=== PATIENT | female | born 1940 | race Caucasian/White ===

== ENCOUNTER 2017-11-08 16:56 | Emergency (ER) | END 2017-11-08 18:14 | disposition home or self-care (01) ==

== ENCOUNTER 2018-08-31 15:10 | Inpatient (IN) | payer MEDICARE, OTHER ==
[~2018-08-31] VITALS: Ht 152.4 cm; Wt 45.5 kg
[2018-08-31 15:22] VITALS: Ht 152.4 cm; Wt 45.5 kg
[2018-08-31] MEDS ORDERED: VANCOMYCIN 1 GM (PMX) 250 ML IVPB STA (15:25)
[2018-08-31] MEDS ORDERED: CEFEPIME 2GM/50 ML (PMX) 50 ML IVPB STA (15:25)
[2018-08-31] MEDS ORDERED: NITROGLYCERIN (SL) 0.4 MG TAB ONE (15:46)
[2018-08-31] MEDS ORDERED: NITROGLYCERIN (SL) 0.4 MG TAB SL STA ×2 (15:47→15:54)
[2018-08-31] MEDS ORDERED: ATOR40TA68 PO (16:35)
[2018-08-31] MEDS ORDERED: DOCU-144 PO (16:36)
[2018-08-31] MEDS ORDERED: FER325 PO (16:36)
[2018-08-31] MEDS ORDERED: LEVO50TA7 PO (16:37)
[2018-08-31] MEDS ORDERED: FURO40TA4 PO (16:37)
[2018-08-31] MEDS ORDERED: PANT40TA3 PO (16:38)
[2018-08-31] MEDS ORDERED: NIFE60TA18 PO (16:38)
[2018-08-31] MEDS ORDERED: SEVE800T7 PO (16:39)
[2018-08-31] MEDS ORDERED: FAMO1TAB3 PO (16:40)
[2018-08-31] MEDS ORDERED: CYAN100080 PO (16:42)
[2018-08-31] MEDS ORDERED: ERGO500013 PO (16:43)
[2018-08-31] MEDS ORDERED: FOLI-49 PO (16:44)
[2018-08-31] MEDS ORDERED: NEPHRO-VITE PO (16:45)
[2018-08-31] MEDS ORDERED: PHEN100C PO (16:46)
[2018-08-31] MEDS ORDERED: PYRI50TA14 PO (16:46)
[2018-08-31] MEDS ORDERED: SENN-120 PO (16:47)
[2018-08-31] MEDS ORDERED: WARF5TAB PO (16:47)
[2018-08-31] MEDS ORDERED: NACL 0.9% 3 ML SYG IV SCH (18:00)
[2018-08-31] MEDS ORDERED: DOCUSATE SODIUM 100 MG CAP PO PRN (18:00)
[2018-08-31] MEDS ORDERED: NITROGLYCERIN (SL) 0.4 MG TAB SL PRN (18:00)
[2018-08-31] MEDS ORDERED: ONDANSETRON 4 MG INJ IV PRN ×2 (18:00)
[2018-08-31] MEDS ORDERED: ACETAMINOPHEN 325 MG TAB PO PRN ×2 (18:00)
[2018-08-31] MEDS ORDERED: ALBUTEROL 0.083% (NEB) 2.5 MG/3 ML AMP HHN PRN (18:30)
[2018-08-31] MEDS ORDERED: LABETALOL HCL 20MG INJ IV PRN (19:00)
--- NOTE | 2018-08-31 19:06 | ERD ---
ER Documentation Chief Complaint Chief Complaint SOB 2 hours into HD today; denies any CP HPI 77-year-old female with CKD on hemodialysis, seizure disorder, and hypertension brought in from dialysis today for shortness of breath that started 2 hours into dialysis. She denies any associated chest pain. She does feel generally weak. Otherwise history is limited from the patient as she is in severe respiratory distress. History is mostly taken from the patient's at bedside. He states that the patient has antiphospholipid syndrome and has been on Coumadin for many years. He was they were recently at their senior sourcing manager's office yesterday and she was noted to have a low-grade fever for which she was prescribed Keflex. Otherwise she has been feeling well just somewhat fatigued. ROS Limited due to respiratory distress Medications Home Meds Reported Medications Warfarin Sodium* (Coumadin*) 5 Mg Tablet, 5.5 MG PO QHS, TAB 08/31/18 Sennosides* (Senna Lax*) 8.6 Mg Tablet, 1 TAB PO DAILY, TAB 08/31/18 Pyridoxine Hcl* (Pyridoxine Hcl*) 50 Mg Tablet, 50 MG PO DAILY, TAB 08/31/18 Phenytoin* Sodium Extended (Dilantin*) 100 Mg Capsule, 200 MG PO HS, CAP 08/31/18 [Nephro-Andressa] No Conflict Check, 1 TAB PO DAILY 08/31/18 Folic Acid* (Folic Acid*) Unknown Strength Tablet, 3 TAB PO DAILY, TAB 08/31/18 Ergocalciferol (Vitamin D2) (VITAMIN D2) 50,000 Unit Capsule, 96910 UNIT PO Q30D, CAP 08/31/18 Cyanocobalamin* (Vitamin B-12*) Unknown Strength Tablet.sa, 1 TAB PO DAILY, TAB 08/31/18 Famotidine/Ca Carb/Mag Hydrox (TUMS DUAL ACTION TABLET CHEW) 1 Each Tab.chew, 100 MG PO TID, TAB.CHEW 08/31/18 Sevelamer Carbonate* (Renvela*) 800 Mg Tablet, 0.8 GM PO WITH MEALS, TAB 08/31/18 Pantoprazole* (Protonix*) 40 Mg Tablet.dr, 40 MG PO DAILY, TAB 08/31/18 Nifedipine* (Nifedipine ER*) 60 Mg Tablet.sa, 120 MG PO DAILY, TAB.SA 08/31/18 Levothyroxine Sodium* (Levothyroxine Sodium*) 50 Mcg Tablet, 50 MCG PO BEFORE BREAKFAST, #30 TAB 08/31/18 Furosemide* (Furosemide*) 40 Mg Tablet, 40 MG PO TID, TAB 08/31/18 Ferrous Sulfate* (Ferrous Sulfate*) 325 Mg Tabec, 325 MG PO TID, TAB 08/31/18 Docusate Sodium* (Colace*) 100 Mg Capsule, 100 MG PO BID PRN for prn, #60 CAP 08/31/18 Atorvastatin* (Atorvastatin*) 40 Mg Tablet, 40 MG PO QHS, #30 TAB 08/31/18 Allergies Allergies: Coded Allergies: amoxicillin (Verified Allergy, Unknown, 08/31/18) carbamazepine (Verified Allergy, Unknown, 08/31/18) ciprofloxacin (Verified Allergy, Unknown, 08/31/18) divalproex sodium (Verified Allergy, Unknown, 08/31/18) PMhx/Soc History of Surgery: Yes (kidney/ureter, shunt placement) Anesthesia Reaction: No Hx Neurological Disorder: Yes (seizure d/o ) Hx Respiratory Disorders: No Hx Cardiac Disorders: Yes (htn, renal failure, dialysis, dm) Hx Psychiatric Problems: No Hx Miscellaneous Medical Probl: Yes Hx Alcohol Use: No Hx Substance Use: No Hx Tobacco Use: No Smoking Status: Never smoker FmHx Family History: No diabetes Physical Exam Vitals Vital Signs Date Temp Pulse Resp B/P (MAP) Pulse Ox O2 O2 Flow FiO2 Time Delivery Rate 08/31/18 100.1 84 36 175/70 100 Nasal 3.0 18:31 (105) Cannula 08/31/18 86 24 157/66 100 Nasal 8.0 17:30 (96) Cannula 08/31/18 115 98 100 15:45 08/31/18 115 32 211/119 95 Nasal 8.0 15:23 (149) Cannula 08/31/18 Nasal 8.0 15:23 Cannula 08/31/18 98.1 116 32 205/92 81 15:22 (129) Physical Exam Const: Severe respiratory distress, cyanotic, speaking in short sentences Head: Atraumatic Eyes: Normal Conjunctiva ENT: dry mucous membranes Neck: Full range of motion. No meningismus.no JVD Resp: Diminished breath sounds at the right lung base with generally poor air movement. no rales, wheezing, or rhonchi Cardio: Tachycardic with regular rhythm, no murmurs Abd: Soft, non tender, non distended. Normal bowel sounds Skin: No petechiae or rashes Back: No midline or flank tenderness Ext: Cyanotic, no peripheral edema, no calf tenderness Neur: Awake and alert Result Diagram: 08/31/18 1534 08/31/18 1534 Results 24 hrs Laboratory Tests Test 08/31/18 15:25 08/31/18 15:34 08/31/18 15:37 08/31/18 17:35 Blood Gas Blood arterial Specimen Source Arterial Blood 08/31/2018 4:25: Date Drawn 55 PM Arterial Blood 7.470 pH (Temp corrected) Arterial Blood 46.0 mmhg pCO2 (Temp correct) Arterial Blood 504.1 mmHG pO2 (Temp corrected) Arterial Blood 32.7 mmol/L HCO3 Arterial Blood 8.2 mmol/L Base Excess Arterial Blood 99.7 mmHG Oxygen Saturatio n Eron Test ACCEPTAB Arterial Blood Right Radial Gas Puncture Site Arterial 0.7 % Blood Carboxyhem oglobin Arterial Blood 0.3 % Methemoglobin Blood Gas A-a O2 162.9 mmHg Differential Oxyhemoglobin 98.7 % Percent Blood Gas 37.0 C Temperature Blood Gas 14.0 Respiration Rate Blood Gas Actual 20 Respiration Rate Blood Gas MASK - BIPAP Modality FiO2 100.0 % Blood Gas 10 Pressure Support Blood Gas 15/5 IPAP/EPAP Ratio Blood Gas MDA Notified Whom Blood Gas 08/31/2018 4:28: Notified Time 32 PM White Blood 5.5 10^3/ul Count Red Blood Count 3.46 10^6/ul Hemoglobin 9.0 g/dl Hematocrit 30.1 % Mean Corpuscular 87.0 fl Volume Mean Corpuscular 26.0 pg Hemoglobin Mean Corpuscular 29.9 g/dl Hemoglobin Nadia nt Red Cell 18.1 % Distribution Width Platelet Count 53 10^3/UL Mean Platelet fl Volume Immature 0.500 % Granulocytes % Neutrophils % % Segmented 81 % Neutrophils % (Manual) Lymphocytes % % Lymphocytes % 9 % (Manual) Monocytes % % Monocytes % 5 % (Manual) Eosinophils % % Eosinophils % 4 % (Manual) Basophils % % Basophils % 1 % (Manual) Nucleated Red 1 % Blood Cells % Immature 0.030 10^3/ul Granulocytes # Neutrophils # 10^3/ul Lymphocytes 0.4 10^3/ul (Manual) Lymphocytes # 10^3/ul Monocytes # 10^3/ul Monocytes # 0.2 10^3/ul (Manual) Eosinophils # 10^3/ul Basophils # 10^3/ul Basophils # 0.0 10^3/ul (Manual) Nucleated Red 10^3/ul Blood Cells # Platelet DECREASED Estimate Giant Platelets 1 % Polychromasia 2+ Hypochromasia 1+ Poikilocytosis 2+ Anisocytosis 1+ Microcytosis 1+ Tear Drop Cells 1+ Prothrombin Time 20.0 Sec Prothrombin Time 1.6 Ratio INR 1.69 International Normalized Ratio Activated 125.1 Sec Partial Thrombop last Time Sodium Level 142 mmol/L Potassium Level 4.4 mmol/L Chloride Level 91 mmol/L Carbon Dioxide 34 mmol/L Level Anion Gap 17 Blood Urea 18 mg/dl Nitrogen Creatinine 2.45 mg/dl Est Glomerular mL/min Filtrat Rate mL/min Glucose Level 109 mg/dl Calcium Level 9.4 mg/dl Total Bilirubin 0.3 mg/dl Direct Bilirubin 0.00 mg/dl Indirect 0.3 mg/dl Bilirubin Aspartate Amino 156 IU/L Transf (AST/SGOT ) Alanine 86 IU/L Aminotransferase (ALT/SGPT) Alkaline 261 IU/L Phosphatase Troponin I 0.089 ng/ml B-Type > 878352 PG/ML Natriuretic Peptide Total Protein 8.4 g/dl Albumin 4.4 g/dl Globulin 4.00 g/dl Albumin/Globulin 1.10 Ratio POC Venous 4.3 mmol/L 1.4 mmol/L Lactate Current Medications Medications Dose Sig/Sherrell Start Time Status Last (Trade) Ordered Route PRN Stop Time Admin Dose Reason Admin Vancomycin 250 ml @ ONCE STAT 08/31/18 DC 08/31/18 HCl 125 mls/hr IVPB 15:25 16:03 08/31/18 17:24 Cefepime HCl 50 ml @ ONCE STAT 08/31/18 DC 08/31/18 100 mls/hr IVPB 15:25 15:30 08/31/18 15:54 25 tab STK-MED 08/31/18 DC Nitroglycerin ONCE .ROUTE 15:46 08/31/18 15:47 (Nitroglyceri n (Sl Tab) 0.4 Mg) 1 tab ONCE STAT 08/31/18 DC 08/31/18 Nitroglycerin SL 15:47 15:47 08/31/18 16:09 (Nitroglyceri n (Sl Tab) 0.4 Mg) 1 tab ONCE STAT 08/31/18 DC 08/31/18 Nitroglycerin SL 15:54 15:54 08/31/18 16:17 (Nitroglyceri n (Sl Tab) 0.4 Mg) Ondansetron 4 mg ER BRIDGE 08/31/18 DC HCl (Zofran PRN IV 18:00 Inj) NAUSEA AND/OR 08/31/18 18:13 VOMITING 650 mg ER BRIDGE 08/31/18 DC Acetaminophen PRN PO MILD 18:00 (Tylenol PAIN(1-3)OR 08/31/18 18:13 Tab) ELEVATED TEMP 40 mg QHS PO 08/31/18 Atorvastatin 21:00 Calcium (Lipitor) Docusate 100 mg BID PRN 08/31/18 Sodium PO prn 18:00 (Colace) Ferrous 325 mg TID PO 08/31/18 Sulfate 21:00 (Ferrous Sulfate (Ec)) Furosemide 40 mg TID PO 08/31/18 DC (Lasix) 21:00 08/31/18 21:00 50 mcg BEFORE 09/01/18 DC Levothyroxine BREAKFAST 07:00 Sodium PO 09/01/18 07:00 (Synthroid) Nifedipine 120 mg DAILY PO 08/31/18 (Procardia 18:00 Xl) 40 mg DAILY PO 09/01/18 UNV Pantoprazole 09:00 (Protonix Tab) Phenytoin 200 mg HS PO 08/31/18 (Dilantin) 21:00 Pyridoxine 50 mg DAILY PO 09/01/18 HCl 09:00 (Vitamin B6) Senna 1 tab DAILY PO 09/01/18 (Senokot) 09:00 Sevelamer 0.8 gm WITH MEALS 08/31/18 Carbonate PO 18:00 (Renvela) Warfarin 5.5 mg QHS PO 08/31/18 UNV Sodium 21:00 (Coumadin) IV Flush 3 ml PER 08/31/18 (NS 3 ml) PROTOCOL IV 18:00 Ondansetron 4 mg Q6H PRN 08/31/18 HCl (Zofran IV NAUSEA 18:00 Inj) AND/OR VOMITING 1 tab Q5M PRN 08/31/18 Nitroglycerin SL CHEST 18:00 PAIN (Nitroglyceri n (Sl Tab) 0.4 Mg) 650 mg Q6H PRN 08/31/18 Acetaminophen PO PAIN 18:00 (Tylenol LEVEL 1-3 OR Tab) FEVER 40 mg DAILY@06 09/01/18 Pantoprazole PO 06:00 (Protonix Tab) Furosemide 20 mg Q8 IV 08/31/18 (Lasix) 18:30 Albuterol 2.5 mg Q2H RESP 08/31/18 (Proventil THERAPY PRN 18:30 0.083% (Neb)) HHN SHORTNESS OF BREATH Warfarin 2.5 mg QHS PO 08/31/18 Sodium 21:00 (Coumadin) Warfarin 3 mg QHS PO 08/31/18 Sodium 21:00 (Coumadin) 75 mcg BEFORE 09/01/18 Levothyroxine BREAKFAST 07:00 Sodium PO (Synthroid) Labetalol 10 mg Q4 PRN IV 08/31/18 UNV HCl SBP >170 19:00 (Labetalol) Hydralazine 10 mg Q4H PRN 08/31/18 UNV HCl IV SBP >170 19:00 (Apresoline) Procedures/MDM EMERGENT LABS AND DIAGNOSTIC STUDIES: Lab Results above were reviewed and interpreted by me. CBC: Mild anemia and thrombocytopenia CMP: Elevated creatinine, consistent with CKD. No evidence of electrolyte abnormality or hypoglycemia BNP significantly elevated, consistent with fluid overload Troponin within normal limits, not indicative of cardiac ischemia Lactate significantly elevated, consistent with tissue hypoperfusion Coags: INR is subtherapeutic. PTT is significantly elevated, unclear etiology 12-lead EKG was interpreted by Tish Carlos MD: Normal Sinus Rhythm with ventricular rate of 98 beats per minute Right axis deviation Normal intervals No acute ST or T wave changes suggestive of acute ischemia or STEMI. Radiology Results as interpreted by Radiology below were reviewed by Rachael aCrlos MD: Chest x-ray shows moderate right pleural effusion. Mild pulmonary vascular congestion. Initial Nursing notes reviewed. Previous Medical Records requested via the Electronic Health Record. EMERGENCY DEPARTMENT COURSE / MEDICAL DECISION MAKING: patient presented in severe respiratory distress and was hypoxic on room air despite supplemental oxygen. IVs were placed. She was placed on BiPAP with significant symptomatic improvement. Her chest x-ray showed a right-sided pleural effusion, which her states that she had on her last admission to [facility]. It is unclear if that was smaller than this. However there is no obvious consolidation that would be consistent with pneumonia. She was hypertensive so nitroglycerin was given with improvement of her blood pressure. Sepsis workup was initiated and she was given broad-spectrum antibiotics, however I have a lower suspicion for severe sepsis or septic shock in this patient. I believe her lactate elevation is likely secondary to her hypoxia. Repeat lactate was within normal limits after stabilization. Patient does feel much better and is on nasal cannula upon reassessment. However I feel she will need admission for observation as she is still on supplemental oxygen by nasal cannula. Low suspicion for acute coronary syndrome or pulmonary embolism. Further workup will be deferred to the inpatient team. Critical Care Time: 45 minutes Treatments/Evaluations: Close monitoring and treatment of unstable vital signs, cardiorespiratory, and neurologic status, while maintaining tight balance of fluid, respiratory, and cardiac interventions. This time includes discussing the case with the patient and the patients family. This time does not include all procedures stated elsewhere in this record. This time also includes reviewing old records, labs and radiological studies. This time includes examining and re-examining the patient. Additionally, this time also includes arranging care with admitting and consulting physicians. Departure Diagnosis: Primary Impression: Acute respiratory failure with hypoxia Additional Impressions: CKD (chronic kidney disease) Chronic kidney disease stage: on chronic dialysis Qualified Codes: N18.6 - End stage renal disease; Z99.2 - Dependence on renal dialysis Pleural effusion, right Elevated partial thromboplastin time (PTT) Lactic acidosis Condition: Serious RICO CARLOS MD Aug 31, 2018 19:06
--- NOTE | 2018-08-31 19:08 | HP ---
Date/Time of Note Date/Time of Note DATE: 08/31/18 TIME: 18:44 Assessment/Plan VTE Prophylaxis SCD applied (from Nsg): Yes Pharmacological prophylaxis: NA/contraindicated Pharm contraindication: thrombocytopenia Lines/Catheters IV Catheter Type (from Nrsg): Saline Lock Assessment/Plan Assessment/Plan 1. Acute shortness of breath - weaned off bipap and doing well on NC - Effusion appreciated on RLL and will give Lasix - no signs of infection and patient was given a dose of antibiotics in ED 2. Hypertension - continue home medications and adjust as needed - PRN on board if SBP >170 3. Recent fever - Patient has low grade temp of 100.1. - Most likely viral. Will check influenza swab - will hold off on antibiotics and if spikes a fever >101 will start on empirical antibiotics - lactic acid normalized 4. ESRD on HD - Nephrology consultation placed for HD management. MWF schedule 5. Hypothyroidism - per , levothyroxine was recently adjusted and increased to 75mcg 6. h/o antiphospholipid Ab - on Coumadin and managed by her stock broker 7. h/o thalassemia minor 8. thrombocytopenia - started on new medication but does not remember name 9. Seizure history - continue on dilantin 10. h/o CVA with residual expressive aphasia 11. Diet - Renal 12. DVT ppx - SCD 13. GI - PPI 14. Disposition - Admit to telemetry for optimization of respiratory status Result Diagram: 08/31/18 1534 08/31/18 1534 Results 24hrs Laboratory Tests Test 08/31/18 15:25 08/31/18 15:34 08/31/18 15:37 08/31/18 17:35 Blood Gas Blood arterial Specimen Source Arterial Blood 08/31/2018 4:25:5 Date Drawn 5 PM Arterial Blood pH 7.470 H (Temp corrected) Arterial Blood 46.0 H pCO2 (Temp correct) Arterial Blood 504.1 H pO2 (Temp corrected) Arterial Blood 32.7 H HCO3 Arterial Blood 8.2 H Base Excess Arterial Blood 99.7 Oxygen Saturation Eron Test ACCEPTAB Arterial Blood Right Radial Gas Puncture Site Arterial 0.7 Blood Carboxyhemo globin Arterial Blood 0.3 Methemoglobin Blood Gas A-a O2 162.9 H Differential Oxyhemoglobin 98.7 Percent Blood Gas 37.0 Temperature Blood Gas 14.0 Respiration Rate Blood Gas Actual 20 Respiration Rate Blood Gas MASK - BIPAP Modality FiO2 100.0 Blood Gas 10 Pressure Support Blood Gas 15/5 IPAP/EPAP Ratio Blood Gas MDA Notified Whom Blood Gas 08/31/2018 4:28:3 Notified Time 2 PM White Blood Count 5.5 Red Blood Count 3.46 L Hemoglobin 9.0 L Hematocrit 30.1 L Mean Corpuscular 87.0 Volume Mean Corpuscular 26.0 L Hemoglobin Mean Corpuscular 29.9 L Hemoglobin Concen t Red Cell 18.1 H Distribution Width Platelet Count 53 L Mean Platelet Volume Immature 0.500 H Granulocytes % Neutrophils % Segmented 81 H Neutrophils % (Manual) Lymphocytes % Lymphocytes % 9 L (Manual) Monocytes % Monocytes % 5 (Manual) Eosinophils % Eosinophils % 4 (Manual) Basophils % Basophils % 1 (Manual) Nucleated Red 1 H Blood Cells % Immature 0.030 Granulocytes # Neutrophils # Lymphocytes 0.4 L (Manual) Lymphocytes # Monocytes # Monocytes # 0.2 L (Manual) Eosinophils # Basophils # Basophils # 0.0 (Manual) Nucleated Red Blood Cells # Platelet Estimate DECREASED Giant Platelets 1 H Polychromasia 2+ Hypochromasia 1+ Poikilocytosis 2+ Anisocytosis 1+ Microcytosis 1+ Tear Drop Cells 1+ Prothrombin Time 20.0 H Prothrombin Time 1.6 Ratio INR International 1.69 Normalized Ratio Activated 125.1 *H Partial Thrombopl ast Time Sodium Level 142 Potassium Level 4.4 Chloride Level 91 L Carbon Dioxide 34 H Level Anion Gap 17 H Blood Urea 18 Nitrogen Creatinine 2.45 H Est Glomerular Filtrat Rate mL/min Glucose Level 109 Calcium Level 9.4 Total Bilirubin 0.3 Direct Bilirubin 0.00 Indirect 0.3 Bilirubin Aspartate Amino 156 H Transf (AST/SGOT) Alanine 86 H Aminotransferase (ALT/SGPT) Alkaline 261 H Phosphatase Troponin I 0.089 B-Type > 214242 H Natriuretic Peptide Total Protein 8.4 H Albumin 4.4 Globulin 4.00 H Albumin/Globulin 1.10 Ratio POC Venous 4.3 *H 1.4 Lactate HPI/ROS Admit Date/Time Admit Date/Time 08/31/18 1900 Hx of Present Illness 77 yo F with PMH ESRD on HD, antiphospholipid Ab with history of stroke with residual expressive aphasia, hypothyroidism, seizures, and HTN presented from HD today after experiencing acute shortness of breath with hypotension. She was transported to ED and found to be hypoxic with saturations in the 80% and placed on BIPAP. She was weaned to nasal cannula with improvement in her respiratory status. She was also found with elevated BP and given nitro with improvement. CXR was performed and she was found with right sided pleural effusion with mild pulmonary congestion. Per she was seen by her stock broker 2 days ago for INR check and found with temp 100.5, CXR, blood cultures and urine studies were performed. She was given a dose of Cefepime and continued on PO Keflex which she took a dose of last night. Patient denies any chest pain, palpitations, headaches, nasal congestion, cough, dizziness, constipation, diarrhea, urinary issues, or sick contact. Per she was admitted to [facility] last month for workup of acute GI bleeding after INR was found to be 4 and underwent EGD and colonoscopies that were negative for acute bleeding. Patient denies any blood in stool at this time or active bleeding. ROS All 12 systems reviewed and pertinent positives as per HPI. All others negative. Constitutional: No fatigue, No nausea Eyes: No discharge ENT: No congestion Respiratory: shortness of breath; No pain, No cough, No sputum, No wheezing Cardiovascular: No chest pain, No lightheadedness, No palpitations Gastrointestinal: No pain, No constipation, No diarrhea, No nausea, No vomiting Genitourinary: no complaints Musculoskeletal: no complaints Skin: No bruising, No laceration, No rash Neurologic: no complaints Endocrine: no complaints Lymphatic: no complaints Psychological: nl mood/affect Immunologic: no complaints PMH/Family/Social Past Medical History Medical History: other (ESRD on HD, antiphospholipid Ab with history of stroke with residual expressive aphasia, hypothyroidism, seizures, and HTN ) Medications Current Medications Atorvastatin Calcium (Lipitor) 40 mg QHS PO ; Start 08/31/18 at 21:00 Docusate Sodium (Colace) 100 mg BID PRN PO prn; Start 08/31/18 at 18:00 Ferrous Sulfate (Ferrous Sulfate (Ec)) 325 mg TID PO ; Start 08/31/18 at 21:00 Levothyroxine Sodium (Synthroid) 50 mcg BEFORE BREAKFAST PO ; Start 09/01/18 at 07:00 Nifedipine (Procardia Xl) 120 mg DAILY PO ; Start 08/31/18 at 18:00 Phenytoin (Dilantin) 200 mg HS PO ; Start 08/31/18 at 21:00 Pyridoxine HCl (Vitamin B6) 50 mg DAILY PO ; Start 09/01/18 at 09:00 Senna (Senokot) 1 tab DAILY PO ; Start 09/01/18 at 09:00 Sevelamer Carbonate (Renvela) 0.8 gm WITH MEALS PO ; Start 08/31/18 at 18:00 IV Flush (NS 3 ml) 3 ml PER PROTOCOL IV ; Start 08/31/18 at 18:00 Ondansetron HCl (Zofran Inj) 4 mg Q6H PRN IV NAUSEA AND/OR VOMITING; Start 08/31/18 at 18:00 Nitroglycerin (Nitroglycerin (Sl Tab) 0.4 Mg) 1 tab Q5M PRN SL CHEST PAIN; Start 08/31/18 at 18:00 Acetaminophen (Tylenol Tab) 650 mg Q6H PRN PO PAIN LEVEL 1-3 OR FEVER; Start 08/31/18 at 18:00 Pantoprazole (Protonix Tab) 40 mg DAILY@06 PO ; Start 09/01/18 at 06:00 Furosemide (Lasix) 20 mg Q8 IV ; Start 08/31/18 at 18:30 Albuterol (Proventil 0.083% (Neb)) 2.5 mg Q2H RESP THERAPY PRN HHN SHORTNESS OF BREATH; Start 08/31/18 at 18:30 Warfarin Sodium (Coumadin) 2.5 mg QHS PO ; Start 08/31/18 at 21:00 Warfarin Sodium (Coumadin) 3 mg QHS PO ; Start 08/31/18 at 21:00 Coded Allergies: amoxicillin (Verified Allergy, Unknown, 08/31/18) carbamazepine (Verified Allergy, Unknown, 08/31/18) ciprofloxacin (Verified Allergy, Unknown, 08/31/18) divalproex sodium (Verified Allergy, Unknown, 08/31/18) Past Surgical History Past Surgical Hx: noncontributory Family History Significant Family History: no pertinent family hx Social History Alcohol Use: none Smoking Status: Never smoker Drug Use: none Exam/Review of Systems Vital Signs Vitals Vital Signs Date Temp Pulse Resp B/P (MAP) Pulse Ox O2 O2 Flow FiO2 Time Delivery Rate 08/31/18 100.1 84 36 175/70 100 Nasal 3.0 18:31 (105) Cannula 08/31/18 100 15:45 Exam Exam General: Patient is laying in bed and answers questions appropriately. no acute distress. slow to answer HEENT: NC/AT. PERRL. EOM intact Neck: Supple, nontender, midline Respiratory: Diminished right base, no wheezing or crackles appreciated Cardiovascular: S1, S2, regular rate and rhythm, no obvious murmurs Gastrointestinal: soft, nondistended, non-tender to palpation, bowel sounds heard. no rebound or guarding Neurological: Moves all extremities spontaneously. no focal deficits Ext: no cyanosis, clubbing, or edema Skin: No new skin lesions Additional Comments Home medication reviewed Imaging: PROCEDURE: XR Chest. CLINICAL INDICATION: Dyspnea TECHNIQUE: Single frontal chest x-ray. COMPARISON: None. FINDINGS: There are moderate right pleural effusion. No pneumothorax. Mildly enlarged cardiac silhouette. Mild pulmonary vascular congestion. Aortic atherosclerotic calcification is noted. The osseous structures are unremarkable. Vascular stent projects over the right axillary region. IMPRESSION: 1. Moderate right pleural effusion. 2. Mildly enlarged cardiac silhouette. Mild pulmonary vascular congestion. 3. Aortic atherosclerosis. RPTAT: [id number] .Xander Diamond MD, MD Date Time Electronically viewed and signed by .Xander Diamond MD, MD on 08/31/2018 16:09 ALEKSANDRA PALACIOS MD Aug 31, 2018 18:56
[2018-08-31 19:35] VITALS: BP 199/96; PULSE 87; RESP 22
[2018-08-31 20:00] VITALS: PULSE 82
[2018-08-31] MEDS ORDERED: FUROSEMIDE 40 MG TAB PO SCH (21:00)
[2018-08-31] MEDS ORDERED: WARFARIN 5 MG TAB PO SCH (21:00)
[2018-08-31] MEDS ORDERED: CEFEPIME 1GM/50 ML (PMX) 50 ML IVPB SCH (21:00)
[2018-08-31] MEDS: NIFEdipine (XL) 60 MG TAB PO SCH (21:29)
[2018-08-31] MEDS: FUROSEMIDE 20 MG INJ IV SCH ×2 (21:30→22:00)
[2018-08-31] MEDS: ATORVASTATIN 40 MG TAB PO SCH (21:30)
[2018-08-31] MEDS: FERROUS SULFATE (EC) 325 MG TAB PO SCH (21:30)
[2018-08-31] MEDS: SEVELAMER CARBONATE 0.8 GM PKT PO SCH (21:30)
[2018-08-31] MEDS: WARFARIN 3 MG TAB PO SCH (21:31)
[2018-08-31] MEDS: WARFARIN 2.5 MG TAB PO SCH (21:31)
[2018-08-31] MEDS: PHENYTOIN 100 MG CAP PO SCH (21:31)
[2018-08-31] MEDS: hydrALAzine 20 MG INJ IV PRN (23:47)
[2018-08-31 23:53] VITALS: BP 178/70; PULSE 81; RESP 18
[2018-09-01] VITALS (10 sets, daily range): BP systolic 141–164; BP diastolic 62–72; PULSE 76–83; RESP 18–21
[2018-09-01] MEDS: PANTOPRAZOLE (EC) 40 MG TAB PO SCH (05:39)
[2018-09-01] MEDS: FUROSEMIDE 20 MG INJ IV SCH ×3 (05:40→22:18)
[2018-09-01] MEDS: LEVOTHYROXINE 75 MCG TAB PO SCH (06:37)
[2018-09-01] MEDS ORDERED: LEVOTHYROXINE 50 MCG TAB PO SCH (07:00)
[2018-09-01] MEDS ORDERED: POTASSIUM CHLORIDE (SR) 20 MEQ TAB PO ONE (08:00)
[2018-09-01] MEDS: SENNA TAB PO SCH (08:27)
[2018-09-01] MEDS: PYRIDOXINE 50 MG TAB PO SCH (08:27)
[2018-09-01] MEDS: NIFEdipine (XL) 60 MG TAB PO SCH (08:28)
[2018-09-01] MEDS: SEVELAMER CARBONATE 0.8 GM PKT PO SCH ×3 (08:28→17:29)
[2018-09-01] MEDS: FERROUS SULFATE (EC) 325 MG TAB PO SCH ×3 (08:28→22:17)
[2018-09-01] MEDS ORDERED: PANTOPRAZOLE (EC) 40 MG TAB PO SCH (09:00)
--- NOTE | 2018-09-01 09:07 | PN ---
Date/Time of Note Date/Time of Note DATE: 09/01/18 TIME: 09:07 Assessment/Plan VTE Prophylaxis Risk score (from Ns)>0 risk: 5 SCD applied (from Ns): No SCD contraindicated: patient refusal Pharmacological prophylaxis: NA/contraindicated Pharm contraindication: thrombocytopenia Lines/Catheters IV [facility]ter [facility] (from [facility]): Saline Lock Assessment/Plan Assessment/Plan 1. Acute shortness of breath- improving - Patient doing well on nasal cannula and will need to wean off O2 or assess for need for home O2 - Effusion appreciated on RLL and on Lasix - Per Nephrology, will plan for HD session prior to discharge - no signs of infection and patient was given a dose of antibiotics in ED 2. Hypertension - continue home medications and adjust as needed - PRN on board if SBP >170 3. Recent fever- - Most likely viral. remains afebrile - will hold off on antibiotics and if spikes a fever >101 will start on empirical antibiotics - lactic acid normalized 4. ESRD on HD - Nephrology consultation placed for HD management. MWF schedule 5. Hypothyroidism - per , levothyroxine was recently adjusted and increased to 75mcg 6. h/o antiphospholipid Ab - on Coumadin and managed by her import and export clerk 7. h/o thalassemia minor 8. thrombocytopenia - started on new medication but does not remember name 9. Seizure history - continue on dilantin 10. h/o CVA with residual expressive aphasia 11. Disposition - Plans for another session of HD prior to discharge - Will evaluate need for home O2 as well - once respiratory status optimized, will d/c home Result Diagram: 09/01/18 0554 09/01/18 0554 Results 24hrs Laboratory Tests Test 08/31/18 15:25 08/31/18 15:34 08/31/18 15:37 08/31/18 17:35 Blood Gas Blood arterial Specimen Source Arterial Blood 08/31/2018 4:25:5 Date Drawn 5 PM Arterial Blood pH 7.470 H (Temp corrected) Arterial Blood 46.0 H pCO2 (Temp correct) Arterial Blood 504.1 H pO2 (Temp corrected) Arterial Blood 32.7 H HCO3 Arterial Blood 8.2 H Base Excess Arterial Blood 99.7 Oxygen Saturation Eron Test ACCEPTAB Arterial Blood Right Radial Gas Puncture Site Arterial 0.7 Blood Carboxyhemo globin Arterial Blood 0.3 Methemoglobin Blood Gas A-a O2 162.9 H Differential Oxyhemoglobin 98.7 Percent Blood Gas 37.0 Temperature Blood Gas 14.0 Respiration Rate Blood Gas Actual 20 Respiration Rate Blood Gas MASK - BIPAP Modality FiO2 100.0 Blood Gas 10 Pressure Support Blood Gas 15/5 IPAP/EPAP Ratio Blood Gas MDA Notified Whom Blood Gas 08/31/2018 4:28:3 Notified Time 2 PM White Blood Count 5.5 Red Blood Count 3.46 L Hemoglobin 9.0 L Hematocrit 30.1 L Mean Corpuscular 87.0 Volume Mean Corpuscular 26.0 L Hemoglobin Mean Corpuscular 29.9 L Hemoglobin Concen t Red Cell 18.1 H Distribution Width Platelet Count 53 L Mean Platelet Volume Immature 0.500 H Granulocytes % Neutrophils % Segmented 81 H Neutrophils % (Manual) Lymphocytes % Lymphocytes % 9 L (Manual) Monocytes % Monocytes % 5 (Manual) Eosinophils % Eosinophils % 4 (Manual) Basophils % Basophils % 1 (Manual) Nucleated Red 1 H Blood Cells % Immature 0.030 Granulocytes # Neutrophils # Lymphocytes 0.4 L (Manual) Lymphocytes # Monocytes # Monocytes # 0.2 L (Manual) Eosinophils # Basophils # Basophils # 0.0 (Manual) Nucleated Red Blood Cells # Platelet Estimate DECREASED Giant Platelets 1 H Polychromasia 2+ Hypochromasia 1+ Poikilocytosis 2+ Anisocytosis 1+ Microcytosis 1+ Tear Drop Cells 1+ Prothrombin Time 20.0 H Prothrombin Time 1.6 Ratio INR International 1.69 Normalized Ratio Activated 125.1 *H Partial Thrombopl ast Time Sodium Level 142 Potassium Level 4.4 Chloride Level 91 L Carbon Dioxide 34 H Level Anion Gap 17 H Blood Urea 18 Nitrogen Creatinine 2.45 H Est Glomerular Filtrat Rate mL/min Glucose Level 109 Calcium Level 9.4 Total Bilirubin 0.3 Direct Bilirubin 0.00 Indirect 0.3 Bilirubin Aspartate Amino 156 H Transf (AST/SGOT) Alanine 86 H Aminotransferase (ALT/SGPT) Alkaline 261 H Phosphatase Troponin I 0.089 B-Type > 104888 H Natriuretic Peptide Total Protein 8.4 H Albumin 4.4 Globulin 4.00 H Albumin/Globulin 1.10 Ratio POC Venous 4.3 *H 1.4 Lactate Test 08/31/18 20:39 09/01/18 05:54 Lactic Acid Level 1.2 White Blood Count 4.5 L Red Blood Count 2.88 L Hemoglobin 7.3 L Hematocrit 24.8 L Mean Corpuscular 86.1 Volume Mean Corpuscular 25.3 L Hemoglobin Mean Corpuscular 29.4 L Hemoglobin Concen t Red Cell 18.0 H Distribution Width Platelet Count 43 L Mean Platelet Volume Immature 0.700 H Granulocytes % Neutrophils % 72.6 Lymphocytes % 9.7 L Monocytes % 13.7 H Eosinophils % 2.9 Basophils % 0.4 Nucleated Red 0.0 Blood Cells % Immature 0.030 Granulocytes # Neutrophils # 3.3 Lymphocytes # 0.4 L Monocytes # 0.6 Eosinophils # 0.1 Basophils # 0.0 Nucleated Red 0.0 Blood Cells # Sodium Level 135 Potassium Level 3.3 L Chloride Level 92 L Carbon Dioxide 32 H Level Anion Gap 11 Blood Urea 29 #H Nitrogen Creatinine 3.68 H Est Glomerular Filtrat Rate mL/min Glucose Level 99 Calcium Level 8.6 Magnesium Level 1.9 Total Bilirubin 0.0 L Direct Bilirubin 0.00 Indirect 0.0 Bilirubin Aspartate Amino 126 H Transf (AST/SGOT) Alanine 71 H Aminotransferase (ALT/SGPT) Alkaline 209 H Phosphatase Total Protein 6.8 # Albumin 3.5 Globulin 3.30 H Albumin/Globulin 1.06 Ratio Subjective 24 Hr Interval Summary Free Text/Dictation Patient states she's feeling better but still with shortness of breath. No acute overnight events. Discussed with will give session of HD today and evaluate for home O2. Exam/Review of Systems Vital Signs Vitals Vital Signs Date Temp Pulse Resp B/P (MAP) Pulse Ox O2 O2 Flow FiO2 Time Delivery Rate 09/01/18 80 08:01 09/01/18 98.0 18 164/71 100 Nasal 07:41 (102) Cannula 09/01/18 2.0 01:27 08/31/18 100 15:45 Intake and Output 08/31/18 08/31/18 09/01/18 1515:00 23:00 07:00 IntakeIntake Total 340 ml BalanceBalance 340 ml Exam General: Patient is laying in bed and answers questions appropriately. no acute distress. slow to answer Neck: Supple Respiratory: Diminished right base, no wheezing or crackles appreciated Cardiovascular: S1, S2, regular rate and rhythm, no obvious murmurs Gastrointestinal: soft, nondistended, non-tender to palpation, bowel sounds heard. no rebound or guarding Neurological: Moves all extremities spontaneously. no focal deficits Medications Medications Current Medications Atorvastatin Calcium (Lipitor) 40 mg QHS PO Last administered on 08/31/18 21:30; Admin Dose 40 MG; Start 08/31/18 at 21:00 Docusate Sodium (Colace) 100 mg BID PRN PO prn; Start 08/31/18 at 18:00 Ferrous Sulfate (Ferrous Sulfate (Ec)) 325 mg TID PO Last administered on 09/01/18 08:28; Admin Dose 325 MG; Start 08/31/18 at 21:00 Nifedipine (Procardia Xl) 120 mg DAILY PO Last administered on 09/01/18 08:28; Admin Dose 120 MG; Start 08/31/18 at 18:00 Phenytoin (Dilantin) 200 mg HS PO Last administered on 08/31/18 21:31; Admin Dose 200 MG; Start 08/31/18 at 21:00 Pyridoxine HCl (Vitamin B6) 50 mg DAILY PO Last administered on 09/01/18 08:27; Admin Dose 50 MG; Start 09/01/18 at 09:00 Senna (Senokot) 1 tab DAILY PO Last administered on 09/01/18 08:27; Admin Dose 1 TAB; Start 09/01/18 at 09:00 Sevelamer Carbonate (Renvela) 0.8 gm WITH MEALS PO Last administered on 09/01/18 08:28; Admin Dose 0.8 GM; Start 08/31/18 at 18:00 IV Flush (NS 3 ml) 3 ml PER PROTOCOL IV ; Start 08/31/18 at 18:00 Ondansetron HCl (Zofran Inj) 4 mg Q6H PRN IV NAUSEA AND/OR VOMITING; Start 08/31/18 at 18:00 Nitroglycerin (Nitroglycerin (Sl Tab) 0.4 Mg) 1 tab Q5M PRN SL CHEST PAIN; Start 08/31/18 at 18:00 Acetaminophen (Tylenol Tab) 650 mg Q6H PRN PO PAIN LEVEL 1-3 OR FEVER; Start 08/31/18 at 18:00 Pantoprazole (Protonix Tab) 40 mg DAILY@06 PO Last administered on 09/01/18at 05:39; Admin Dose 40 MG; Start 09/01/18 at 06:00 Furosemide (Lasix) 20 mg Q8 IV Last administered on 09/01/18at 05:40; Admin Dose 20 MG; Start 08/31/18 at 18:30 Albuterol (Proventil 0.083% (Neb)) 2.5 mg Q2H RESP THERAPY PRN HHN SHORTNESS OF BREATH; Start 08/31/18 at 18:30 Warfarin Sodium (Coumadin) 2.5 mg QHS PO Last administered on 08/31/18at 21:31; Admin Dose 2.5 MG; Start 08/31/18 at 21:00 Warfarin Sodium (Coumadin) 3 mg QHS PO Last administered on 08/31/18at 21:31; Admin Dose 3 MG; Start 08/31/18 at 21:00 Levothyroxine Sodium (Synthroid) 75 mcg BEFORE BREAKFAST PO Last administered on 09/01/18at 06:37; Admin Dose 75 MCG; Start 09/01/18 at 07:00 Labetalol HCl (Labetalol) 10 mg Q4H PRN IV SBP >170; Start 08/31/18 at 19:00 Hydralazine HCl (Apresoline) 10 mg Q4H PRN IV SBP >170 Last administered on 07/09at 23:47; Admin Dose 10 MG; Start 08/31/18 at 19:00 ALEKSANDRA PALACIOS MD Sep 01, 2018 09:07
--- NOTE | 2018-09-01 16:11 | QN ---
Documentation Comment [id number] EDIN MOBLEY MD Sep 01, 2018 16:11
--- NOTE | 2018-09-01 17:52 | CONS ---
DATE OF ADMISSION: 09/01/2018 DATE OF CONSULTATION: TYPE OF CONSULTATION: Nephrology. Thank you, Dr. Roberts, for kindly asking me to see this patient in nephrology consultation. HISTORY OF PRESENT ILLNESS: The patient is a 77-year-old female with history of antiphospholipid ant ibody syndrome. Patient has a history of hypertension, history of ESRD, seizure disorder, thrombocyt openia, presented with shortness of breath. The patient was at the dialysis center and per patient's , the dialysis clinic tried to remove all of the fluid. Her blood pressure dropped, she was short of breath, presented here and the patient's blood pressure 140/66. Chest x-ray done shows vidal ent has moderate right pleural effusion, mildly enlarged right cardiac silhouette, aortic atheroscler osis and patient is being admitted for further management. PAST MEDICAL HISTORY: Antiphospholipid antibody syndrome, ESRD, hypertension. The patient has a his tory of pleural effusion. The patient also has history of anemia, thrombocytopenia. ALLERGY HISTORY: 1. AMOXICILLIN. 2. CARBAMAZEPINE. 3. CIPROFLOXACIN. 4. DEPAKOTE SODIUM. SOCIAL HISTORY: Negative. FAMILY HISTORY: Noncontributory. MEDICATION HISTORY: The patient is on: 1. Lipitor. 2. B12. 3. Docusate sodium. 4. Ergocalciferol. 5. Famotidine. 6. Iron sulfate. 7. Folic acid. 8. Furosemide. 9. Levothyroxine. 10. Nifedipine. 11. Protonix. 12. Dilantin. 13. Pyridoxine. 14. Senna. 15. Sevelamer. 16. Coumadin. 17. Nephro-Andressa. REVIEW OF SYSTEMS: HEENT: Unremarkable. RESPIRATORY: On and off short of breath. CARDIOVASCULAR: No chest pain, palpitation. ABDOMEN: Dyspepsia. EXTREMITIES: No swelling. CENTRAL NERVOUS SYSTEM: Unremarkable. PHYSICAL EXAMINATION: GENERAL: Pale-looking female, awake, alert. Mild short of breath. VITAL SIGNS: Stable. HEENT: Head is atraumatic, normocephalic. Pupils are equal, reactive to light. Pale conjunctivae, no icterus. NECK: Supple. No JVD. LUNGS: Clear anteriorly with basal rhonchi. CARDIOVASCULAR: S1, S2 are normal. ABDOMEN: Soft. Bowel sounds positive. No palpable mass or hepatosplenomegaly. No guarding, reboun d, tenderness. EXTREMITIES: No cyanosis, clubbing. Trace edema. CENTRAL NERVOUS SYSTEM: The patient is awake, alert, moving both upper and lower extremities. IMPRESSION: Patient has: 1. Short of breath. 2. Pleural effusion. 3. Hypertension. 4. Lactic acidosis. 5. Hypokalemia. 6. Abnormal LFT. 7. Antiphospholipid antibody syndrome. 8. Thrombocytopenia. 9. Anemia. PLAN: Continue renal diet, oxygen. Patient will benefit from thoracentesis after hemodialysis if th e patient still has a right-sided pleural effusion. The patient will be followed along with you. Thank you, Dr. Roberts, for kindly asking me to see this patient in nephrology consultation. Dictated By: EDIN MOBLEY MD BS/NTS Conf#: [id number] DID#: [id number] CC: ALEKSANDRA ROBERTS MD;*EndCC*
[2018-09-01] MEDS: WARFARIN 2.5 MG TAB PO SCH (22:17)
[2018-09-01] MEDS: ATORVASTATIN 40 MG TAB PO SCH (22:17)
[2018-09-01] MEDS: WARFARIN 3 MG TAB PO SCH (22:17)
[2018-09-01] MEDS: PHENYTOIN 100 MG CAP PO SCH (22:17)
[2018-09-02] VITALS: BP 174/77; PULSE 82; PULSE 88; RESP 18
[2018-09-02] MEDS: hydrALAzine 20 MG INJ IV PRN (02:52)
[2018-09-02 04:00] VITALS: BP 173/97; PULSE 86; RESP 18
[2018-09-02] MEDS: FUROSEMIDE 20 MG INJ IV SCH (05:38)
[2018-09-02] MEDS: LEVOTHYROXINE 75 MCG TAB PO SCH (05:38)
[2018-09-02] MEDS: PANTOPRAZOLE (EC) 40 MG TAB PO SCH (05:38)
[2018-09-02 07:15] VITALS: BP 159/68; PULSE 82; RESP 18
[2018-09-02 08:01] VITALS: PULSE 80
[2018-09-02] MEDS: SENNA TAB PO SCH (08:21)
[2018-09-02] MEDS: FERROUS SULFATE (EC) 325 MG TAB PO SCH (08:21)
[2018-09-02] MEDS: PYRIDOXINE 50 MG TAB PO SCH (08:21)
[2018-09-02] MEDS: NIFEdipine (XL) 60 MG TAB PO SCH (08:21)
[2018-09-02] MEDS: SEVELAMER CARBONATE 0.8 GM PKT PO SCH (08:21)
--- NOTE | 2018-09-02 09:01 | PN ---
Date/Time of Note Date/Time of Note DATE: 09/02/18 TIME: 09:01 Assessment/Plan VTE Prophylaxis Risk score (from Ns)>0 risk: 8 SCD applied (from Ns): Yes Pharmacological prophylaxis: NA/contraindicated Pharm contraindication: thrombocytopenia Lines/Catheters [facility] Saline Lock Assessment/Plan Assessment/Plan 1. Acute shortness of breath- resolved - patient doing well on room air and does not desaturate with ambulation - Effusion appreciated on RLL and has appt with Radiology Special Procedure Tech next week for evaluation since appears chronic - no signs of infection and patient was given a dose of antibiotics in ED 2. Hypertension - continue home medications and adjust as needed - PRN on board if SBP >170 3. Recent fever- resolved - Most likely viral. remains afebrile - lactic acid normalized 4. ESRD on HD - Nephrology consultation appreciated. MWF schedule 5. Hypothyroidism - per , levothyroxine was recently adjusted and increased to 75mcg 6. h/o antiphospholipid Ab - on Coumadin and managed by her time analysis clerk 7. h/o thalassemia minor 8. thrombocytopenia - stable 9. Seizure history - continue on Dilantin 10. h/o CVA with residual expressive aphasia 11. Disposition - Medically stable for discharge home Result Diagram: 09/02/18 0536 09/02/18 0536 Results 24hrs Laboratory Tests Test 09/02/18 05:36 White Blood Count 6.1 # Red Blood Count 3.44 L Hemoglobin 9.2 #L Hematocrit 29.5 L Mean Corpuscular Volume 85.8 Mean Corpuscular Hemoglobin 26.7 L Mean Corpuscular Hemoglobin Concent 31.2 L Red Cell Distribution Width 17.6 H Platelet Count 85 #L Mean Platelet Volume Immature Granulocytes % 1.000 H Neutrophils % 80.2 H Lymphocytes % 6.4 L Monocytes % 8.6 Eosinophils % 3.5 Basophils % 0.3 Nucleated Red Blood Cells % 0.0 Immature Granulocytes # 0.060 H Neutrophils # 4.9 Lymphocytes # 0.4 L Monocytes # 0.5 Eosinophils # 0.2 Basophils # 0.0 Nucleated Red Blood Cells # 0.0 Prothrombin Time 25.1 #H Prothrombin Time Ratio 2.0 INR International Normalized Ratio 2.27 Sodium Level 140 Potassium Level 4.5 Chloride Level 94 L Carbon Dioxide Level 34 H Anion Gap 12 Blood Urea Nitrogen 14 # Creatinine 2.44 #H Est Glomerular Filtrat Rate mL/min Glucose Level 102 Calcium Level 9.6 Magnesium Level 1.9 Total Bilirubin 0.3 Direct Bilirubin 0.00 Indirect Bilirubin 0.3 Aspartate Amino Transf (AST/SGOT) 117 H Alanine Aminotransferase (ALT/SGPT) 82 H Alkaline Phosphatase 221 H Total Protein 7.5 Albumin 3.7 Globulin 3.80 H Albumin/Globulin Ratio 0.97 Subjective 24 Hr Interval Summary Free Text/Dictation Patient doing well and ambulating around the unit. Family with patient and states shes back to baseline. No acute overnight events. Exam/Review of Systems Vital Signs Vitals Vital Signs Date Temp Pulse Resp B/P (MAP) Pulse Ox O2 O2 Flow FiO2 Time Delivery Rate 09/02/18 80 08:01 09/02/18 98.3 18 159/68 97 Room Air 07:15 (98) 09/01/18 3.0 20:00 08/31/18 100 15:45 Intake and Output 09/01/18 09/01/18 09/02/18 1515:00 23:00 07:00 IntakeIntake Total 800 ml 400 ml OutputOutput Total 2000 ml BalanceBalance 800 ml -1600 ml Exam General: Patient is ambulating around unit. no distress Neck: Supple Respiratory: Diminished right base, no wheezing or crackles appreciated Cardiovascular: S1, S2, regular rate and rhythm, no obvious murmurs Gastrointestinal: soft, nondistended, non-tender to palpation, bowel sounds heard. no rebound or guarding Neurological: Moves all extremities spontaneously. no focal deficits Medications Medications Current Medications Atorvastatin Calcium (Lipitor) 40 mg QHS PO Last administered on 09/01/18at 22:17; Admin Dose 40 MG; Start 08/31/18 at 21:00 Docusate Sodium (Colace) 100 mg BID PRN PO prn; Start 08/31/18 at 18:00 Ferrous Sulfate (Ferrous Sulfate (Ec)) 325 mg TID PO Last administered on 08/21 11/06at 08:21; Admin Dose 325 MG; Start 08/31/18 at 21:00 Nifedipine (Procardia Xl) 120 mg DAILY PO Last administered on 09/02/18at 08:21; Admin Dose 120 MG; Start 08/31/18 at 18:00 Phenytoin (Dilantin) 200 mg HS PO Last administered on 09/01/18 22:17; Admin Dose 200 MG; Start 08/31/18 at 21:00 Pyridoxine HCl (Vitamin B6) 50 mg DAILY PO Last administered on 09/02/18 08:21; Admin Dose 50 MG; Start 09/01/18 at 09:00 Senna (Senokot) 1 tab DAILY PO Last administered on 09/02/18 08:21; Admin Dose 1 TAB; Start 09/01/18 at 09:00 Sevelamer Carbonate (Renvela) 0.8 gm WITH MEALS PO Last administered on 09/02/18 08:21; Admin Dose 0.8 GM; Start 08/31/18 at 18:00 IV Flush (NS 3 ml) 3 ml PER PROTOCOL IV ; Start 08/31/18 at 18:00 Ondansetron HCl (Zofran Inj) 4 mg Q6H PRN IV NAUSEA AND/OR VOMITING; Start 08/31/18 at 18:00 Nitroglycerin (Nitroglycerin (Sl Tab) 0.4 Mg) 1 tab Q5M PRN SL CHEST PAIN; Start 08/31/18 at 18:00 Acetaminophen (Tylenol Tab) 650 mg Q6H PRN PO PAIN LEVEL 1-3 OR FEVER; Start 08/31/18 at 18:00 Pantoprazole (Protonix Tab) 40 mg DAILY@06 PO Last administered on 09/02/18 05:38; Admin Dose 40 MG; Start 09/01/18 at 06:00 Furosemide (Lasix) 20 mg Q8 IV Last administered on 09/02/18 05:38; Admin Dose 20 MG; Start 08/31/18 at 18:30 Albuterol (Proventil 0.083% (Neb)) 2.5 mg Q2H RESP THERAPY PRN HHN SHORTNESS OF BREATH; Start 08/31/18 at 18:30 Warfarin Sodium (Coumadin) 2.5 mg QHS PO Last administered on 09/01/18 22:17; Admin Dose 2.5 MG; Start 08/31/18 at 21:00 Warfarin Sodium (Coumadin) 3 mg QHS PO Last administered on 09/01/18 22:17; Admin Dose 3 MG; Start 08/31/18 at 21:00 Levothyroxine Sodium (Synthroid) 75 mcg BEFORE BREAKFAST PO Last administered on 1/13/19at 05:38; Admin Dose 75 MCG; Start 09/01/18 at 07:00 Labetalol HCl (Labetalol) 10 mg Q4H PRN IV SBP >170; Start 08/31/18 at 19:00 Hydralazine HCl (Apresoline) 10 mg Q4H PRN IV SBP >170 Last administered on 09/02/18at 02:52; Admin Dose 10 MG; Start 08/31/18 at 19:00 ALEKSANDRA PALACIOS MD Sep 02, 2018 09:01
[2018-09-02] MEDS ORDERED: LEVO75TA5 PO (10:30)
--- NOTE | 2018-09-02 10:34 | PDOCDIS ---
Discharge Instructions DIAGNOSIS Discharge Diagnosis 1. Acute shortness of breath- resolved 2. Hypertension 3. Recent fever 4. ESRD on HD 5. Hypothyroidism 6. h/o antiphospholipid Ab 7. h/o thalassemia minor 8. thrombocytopenia 9. Seizure history 10. h/o CVA with residual expressive aphasia CONDITION [id number] Patient Condition: [id number] Stable HOME CARE INSTRUCTIONS: [id number] Special Diet: [id number] renal ACTIVITY: [id number] Activity Restrictions: [id number] No Restrictions FOLLOW UP/APPOINTMENTS Follow-up Plan 1. Follow up with your Primary care physician in 1 week 2. Follow up with your Carry In Worker as previously scheduled. Your INR today (09/02) was 2.27. Continue Coumadin as prescribed 3. Follow up with your Lab Rn as previously scheduled. You were ambulated around the unit and your oxygen levels never dropped. You do not need home oxygen at this time 4. Continue all medications as prescribed 5. Continue dialysis as scheduled 6. If symptoms return, please go to your closest emergency department 7. I do not recommend continuing on antibiotics given you remained afebrile and blood cultures as well as urine studies were negative for any acute infections. Chest xray also did not show any developing pneumonia ALEKSANDRA PALACIOS MD Sep 02, 2018 10:34
--- NOTE | 2018-09-02 16:16 | DS ---
Date/Time of Note Date/Time of Note DATE: 09/02/18 TIME: 16:13 Discharge Summary Admission/Discharge Info Admit Date/Time Sep 01, 2018 at 10:30 Discharge Date/Time Sep 02, 2018 at 11:20 Discharge Diagnosis 1. Acute shortness of breath- resolved 2. Hypertension 3. Recent fever 4. ESRD on HD 5. Hypothyroidism 6. h/o antiphospholipid Ab 7. h/o thalassemia minor 8. thrombocytopenia 9. Seizure history 10. h/o CVA with residual expressive aphasia Consults Nephrology- Dr. Daniels Procedures PROCEDURE: XR Chest. CLINICAL INDICATION: Dyspnea TECHNIQUE: Single frontal chest x-ray. COMPARISON: None. FINDINGS: There are moderate right pleural effusion. No pneumothorax. Mildly enlarged cardiac silhouette. Mild pulmonary vascular congestion. Aortic atherosclerotic calcification is noted. The osseous structures are unremarkable. Vascular stent projects over the right axillary region. IMPRESSION: 1. Moderate right pleural effusion. 2. Mildly enlarged cardiac silhouette. Mild pulmonary vascular congestion. 3. Aortic atherosclerosis. RPTAT: [id number] .Xander Diamond MD, MD Date Time Electronically viewed and signed by .Xander Diamond MD, MD on 08/31/2018 16:09 Hx of Present Illness 77 yo F with PMH ESRD on HD, antiphospholipid Ab with history of stroke with residual expressive aphasia, hypothyroidism, seizures, and HTN presented from HD today after experiencing acute shortness of breath with hypotension. She was transported to ED and found to be hypoxic with saturations in the 80% and placed on BIPAP. She was weaned to nasal cannula with improvement in her respiratory status. She was also found with elevated BP and given nitro with improvement. CXR was performed and she was found with right sided pleural effusion with mild pulmonary congestion. Per she was seen by her budget technician 2 days ago for INR check and found with temp 100.5, CXR, blood cultures and urine studies were performed. She was given a dose of Cefepime and continued on PO Keflex which she took a dose of last night. Patient denies any chest pain, palpitations, headaches, nasal congestion, cough, dizziness, constipation, diarrhea, urinary issues, or sick contact. Per she was admitted to [facility] last month for workup of acute GI bleeding after INR was found to be 4 and underwent EGD and colonoscopies that were negative for acute bleeding. Patient denies any blood in stool at this time or active bleeding. Hospital Course Patient was admitted for acute shortness of breath and Nephrology was consulted for management of hemodialysis. Patient was continued on Lasix to help with pulmonary congestions and pleural effusions. No infectious source was appreciated and antibiotics were not continued after ED. Patient underwent one session of hemodialysis with improvement in respiratory status. Patient was ambulated around the unit off O2 with no signs of desaturations or respiratory compromise. Patients presenting symptoms improved significantly and she was discharged home in stable condition. Vitals and physical exam were stable at time of discharge. Home Meds Active Scripts Levothyroxine Sodium* (Levothyroxine Sodium*) 75 Mcg Tablet, 75 MCG PO BEFORE BREAKFAST for 30 Days, #30 TAB Prov:ALEKSANDRA PALACIOS MD 09/02/18 Reported Medications Warfarin Sodium* (Coumadin*) 5 Mg Tablet, 5.5 MG PO QHS, TAB 08/31/18 Sennosides* (Senna Lax*) 8.6 Mg Tablet, 1 TAB PO DAILY, TAB 08/31/18 Pyridoxine Hcl* (Pyridoxine Hcl*) 50 Mg Tablet, 50 MG PO DAILY, TAB 08/31/18 Phenytoin* Sodium Extended (Dilantin*) 100 Mg Capsule, 200 MG PO HS, CAP 08/31/18 [Nephro-Andressa] No Conflict Check, 1 TAB PO DAILY 08/31/18 Folic Acid* (Folic Acid*) Unknown Strength Tablet, 3 TAB PO DAILY, TAB 08/31/18 Ergocalciferol (Vitamin D2) (VITAMIN D2) 50,000 Unit Capsule, 15831 UNIT PO Q30D, CAP 08/31/18 Cyanocobalamin* (Vitamin B-12*) Unknown Strength Tablet.sa, 1 TAB PO DAILY, TAB 08/31/18 Famotidine/Ca Carb/Mag Hydrox (TUMS DUAL ACTION TABLET CHEW) 1 Each Tab.chew, 100 MG PO TID, TAB.CHEW 08/31/18 Sevelamer Carbonate* (Renvela*) 800 Mg Tablet, 0.8 GM PO WITH MEALS, TAB 08/31/18 Pantoprazole* (Protonix*) 40 Mg Tablet.dr, 40 MG PO DAILY, TAB 08/31/18 Nifedipine* (Nifedipine ER*) 60 Mg Tablet.sa, 120 MG PO DAILY, TAB.SA 08/31/18 Furosemide* (Furosemide*) 40 Mg Tablet, 40 MG PO TID, TAB 08/31/18 Ferrous Sulfate* (Ferrous Sulfate*) 325 Mg Tabec, 325 MG PO TID, TAB 08/31/18 Docusate Sodium* (Colace*) 100 Mg Capsule, 100 MG PO BID PRN for prn, #60 CAP 08/31/18 Atorvastatin* (Atorvastatin*) 40 Mg Tablet, 40 MG PO QHS, #30 TAB 08/31/18 Discontinued Reported Medications Levothyroxine Sodium* (Levothyroxine Sodium*) 50 Mcg Tablet, 50 MCG PO BEFORE BREAKFAST, #30 TAB 08/31/18 Follow-up Plan 1. Follow up with your Primary care physician in 1 week 2. Follow up with your Engineering Technology Instructor as previously scheduled. Your INR today (09/02) was 2.27. Continue Coumadin as prescribed 3. Follow up with your Log Inspector as previously scheduled. You were ambulated around the unit and your oxygen levels never dropped. You do not need home oxygen at this time 4. Continue all medications as prescribed 5. Continue dialysis as scheduled 6. If symptoms return, please go to your closest emergency department 7. I do not recommend continuing on antibiotics given you remained afebrile and blood cultures as well as urine studies were negative for any acute infections. Chest xray also did not show any developing pneumonia Primary Care Provider Not On Staff Doctor Time spent on discharge: > 30 minutes Pending Labs Laboratory Tests Test 09/02/18 05:36 White Blood Count 6.1 10^3/ul (4.8-10.8) Red Blood Count 3.44 10^6/ul (4.20-5.40) Hemoglobin 9.2 g/dl (12.0-16.0) Hematocrit 29.5 % (37.0-47.0) Mean Corpuscular Volume 85.8 fl (82.0-101.0) Mean Corpuscular Hemoglobin 26.7 pg (29.0-33.0) Mean Corpuscular Hemoglobin Concent 31.2 g/dl (32.0-37.0) Red Cell Distribution Width 17.6 % (11.5-14.5) Platelet Count 85 10^3/UL (140-415) Mean Platelet Volume fl (7.4-10.4) Immature Granulocytes % 1.000 % (0.001-0.429) Neutrophils % 80.2 % (39.0-77.0) Lymphocytes % 6.4 % (15.0-51.0) Monocytes % 8.6 % (0.0-11.0) Eosinophils % 3.5 % (0.0-7.0) Basophils % 0.3 % (0.0-2.0) Nucleated Red Blood Cells % 0.0 /100WBC (0.0-0.0) Immature Granulocytes # 0.060 10^3/ul (0.0-0.031) Neutrophils # 4.9 10^3/ul (1.6-7.5) Lymphocytes # 0.4 10^3/ul (0.8-2.9) Monocytes # 0.5 10^3/ul (0.3-0.9) Eosinophils # 0.2 10^3/ul (0.0-0.5) Basophils # 0.0 10^3/ul (0.0-0.1) Nucleated Red Blood Cells # 0.0 10^3/ul (0.0-0.0) Prothrombin Time 25.1 Sec (11.9-14.9) Prothrombin Time Ratio 2.0 INR International Normalized Ratio 2.27 Sodium Level 140 mmol/L (135-144) Potassium Level 4.5 mmol/L (3.5-5.1) Chloride Level 94 mmol/L (97-110) Carbon Dioxide Level 34 mmol/L (21-31) Anion Gap 12 (5-13) Blood Urea Nitrogen 14 mg/dl (7-20) Creatinine 2.44 mg/dl (0.44-1.00) Est Glomerular Filtrat Rate mL/min mL/min (>60) Glucose Level 102 mg/dl (70-220) Calcium Level 9.6 mg/dl (8.4-10.2) Magnesium Level 1.9 mg/dl (1.7-2.5) Total Bilirubin 0.3 mg/dl (0.2-1.3) Direct Bilirubin 0.00 mg/dl (0.00-0.20) Indirect Bilirubin 0.3 mg/dl (0-1.1) Aspartate Amino Transf (AST/SGOT) 117 IU/L (15-46) Alanine Aminotransferase (ALT/SGPT) 82 IU/L (13-69) Alkaline Phosphatase 221 IU/L (42-121) Total Protein 7.5 g/dl (6.1-8.1) Albumin 3.7 g/dl (3.3-4.9) Globulin 3.80 g/dl (1.3-3.2) Albumin/Globulin Ratio 0.97 ALEKSANDRA PALACIOS MD Sep 02, 2018 16:16
== END 2018-09-02 11:20 | disposition home or self-care (01) | DRG 204 ==
LOC: E/R 15:10 → TEL 17:36 → OBSVTOIN 09-01 10:30
PROVIDERS: ADMIT Internal Medicine; ATTEND Internal Medicine
PROC: 30233N1 Transfusion of Nonautologous Red Blood Cells into Peripheral Vein, Percutaneous Approach (ICD-10-PCS; principal; 2018-09-01)
DX: R06.02 Shortness of breath (principal); N18.6 End stage renal disease; J90 Pleural effusion, not elsewhere classified; E87.2 Acidosis; I12.0 Hypertensive chronic kidney disease with stage 5 chronic kidney disease or end stage renal disease; Z99.2 Dependence on renal dialysis; E03.9 Hypothyroidism, unspecified; D69.6 Thrombocytopenia, unspecified; I69.320 Aphasia following cerebral infarction; G40.909 Epilepsy, unspecified, not intractable, without status epilepticus; E87.6 Hypokalemia; R94.5 Abnormal results of liver function studies; D64.9 Anemia, unspecified; Z86.2 Personal history of diseases of the blood and blood-forming organs and certain disorders involving the immune mechanism; R09.89 Other specified symptoms and signs involving the circulatory and respiratory systems
CPT/HCPCS: 36415; 36430; 36600; 71045; 80048; 80053; 82803; 83605; 83735; 83880; 84484; 85025; 85610; 85730; 86850; 86900; 86901; 86920; 87040; 87340; 87400; 93005; 94660; 96374; 96375; 97161; G0378; J0360; J0692; J1940; J3370; P9016